=== PATIENT | male | born 1930 | race Caucasian/White ===

== ENCOUNTER 2019-10-26 18:28 | Emergency (ER) | payer MEDICAID ==
[2019-10-26] MEDS ORDERED: Aspirin 81 MG Tab.Chew PO ONE (18:57)
[2019-10-26] MEDS ORDERED: Alum Hydroxide/Mag Hydroxide 15 ML, Lidocaine 2% 15 ML PO ONE ×2 (19:02)
--- NOTE | 2019-10-26 20:21 | EDM.PDOC ---
ED HPI GENERAL MEDICAL PROBLEM - General Chief Complaint: Chest Pain Stated Complaint: CHEST PAIN Time Seen by Provider: 10/26/19 18:35 Source of Information: Reports: Patient History Limitations: Reports: No Limitations - History of Present Illness INITIAL COMMENTS - FREE TEXT/NARRATIVE: Patient presented to the Ed because of chest pain whish started at 10 340 am, sharp,3/10 over the epigastric area. there is no associated,N/V but c/o epigastric pain as well. chest Pain Score (Numeric/FACES): 5 - Related Data Allergies Allergy/AdvReac Type Severity Reaction Status Date / Time diphenhydramine Allergy Cannot Verified 10/26/19 19:38 [From [facility]] Remember nitroglycerin Allergy Cannot Verified 10/26/19 19:33 Remember phenyltoloxamine Allergy Cannot Verified 10/26/19 19:38 [From [facility]] Remember Home Meds: Home Meds Acetaminophen [Tylenol Extra Strength] 1,000 mg PO TID 10/26/19 [History] Aspirin [Aspirin EC] 325 mg PO DAILY 10/26/19 [History] Furosemide 80 mg PO DAILY 10/26/19 [History] Levothyroxine Sodium [Unithroid] 50 mcg PO DAILY 10/26/19 [History] Melatonin 5 mg PO BEDTIME 10/26/19 [History] Omeprazole 20 mg PO DAILY #30 tablet.dr 10/26/19 [Rx] Potassium Chloride [Klor-Con M20] 20 meq PO BID 10/26/19 [History] QUEtiapine [SEROquel] 25 mg PO BID 10/26/19 [History] allopurinoL [Zyloprim] 100 mg PO DAILY 10/26/19 [History] carvediloL [Carvedilol] 25 mg PO BID 10/26/19 [History] Past Medical History Cardiovascular History: Reports: Automatic Implantable Cardioverter Defibrillators, Cardiomyopathy, Heart Failure, High Cholesterol, Hypertension Respiratory History: Reports: SOB Genitourinary History: Reports: Prostate Disorder, UTI, Recurrent Neurological History: Reports: Alzheimers Disease Psychiatric History: Reports: Anxiety Oncologic (Cancer) History: Reports: Prostate Social & Family History - Family History Family Medical History: Unobtainable - Tobacco Use Smoking Status *Q: Current Status Unknown - Caffeine Use Caffeine Use Comment: unknown ED ROS GENERAL - Review of Systems Review Of Systems: See Below Constitutional: Reports: No Symptoms HEENT: Reports: No Symptoms Respiratory: Reports: No Symptoms Cardiovascular: Reports: Chest Pain Endocrine: Reports: No Symptoms GI/Abdominal: Reports: No Symptoms, Abdominal Pain Musculoskeletal: Reports: No Symptoms Skin: Reports: No Symptoms Neurological: Reports: No Symptoms Psychiatric: Reports: No Symptoms ED EXAM, GENERAL - Physical Exam Exam: See Below Exam Limited By: No Limitations General Appearance: Alert, WD/WN, No Apparent Distress Eye Exam: Bilateral Eye: PERRL Ears: Normal External Exam, Normal Canal, Normal TMs Nose: Normal Inspection, Normal Mucosa, No Blood Throat/Mouth: Normal Inspection, Normal Lips, Normal Teeth Head: Atraumatic, Normocephalic Neck: Normal Inspection, Supple, Non-Tender, Full Range of Motion Respiratory/Chest: No Respiratory Distress, Lungs Clear, Normal Breath Sounds, No Accessory Muscle Use, Chest Non-Tender Cardiovascular: Normal Peripheral Pulses, Regular Rate, Rhythm, No Edema, No Gallop, No JVD, No Murmur, No Rub GI/Abdominal: Normal Bowel Sounds, Soft, Non-Tender, No Organomegaly, No Distention, Other (epigastric tenderness) (Male) Exam: No Hernia Back Exam: Normal Inspection Course - Vital Signs Text/Narrative:: labs and ekg reviewed with patient and verbalized full understanding ASA 324 mg po x1 GI cocktail-resolved his pain Last Recorded V/S: Last Vital Signs Temp 36.5 C 10/26/19 18:28 Pulse 80 10/26/19 18:28 Resp 14 10/26/19 18:28 BP 106/67 10/26/19 18:28 Pulse Ox 97 10/26/19 18:28 - Orders/Labs/Meds Labs: Laboratory Tests 10/26/19 10/26/19 10/26/19 Range/Units 18:47 18:47 18:47 WBC 4.5 (4.5-12.0) X10-3/uL RBC 3.71 L (4.30-5.75) x10(6)uL Hgb 11.1 L (13.5-17.8) g/dL Hct 32.9 (30.0-51.3) % MCV 88.5 (80-96) fL MCH 29.9 (27.7-33.6) pg MCHC 33.8 (32.2-35.4) g/dL RDW 14.4 (11.5-15.5) % Plt Count 355 (125-369) X10(3)uL MPV 7.7 (7.4-10.4) fL Neut % (Auto) 53.3 (46-82) % Lymph % (Auto) 27.6 (13-37) % [place] % (Auto) 13.1 H (4-12) % Eos % (Auto) 5 (1.0-5.0) % Baso % (Auto) 1 (0-2) % Neut # (Auto) 2.5 (1.6-8.3) # Lymph # (Auto) 1.2 (0.6-5.0) # [place] # (Auto) 0.6 (0.0-1.3) # Eos # (Auto) 0.2 (0.0-0.8) # Baso # (Auto) 0.0 (0.0-0.2) # Sodium 139 (135-145) mmol/L Potassium 3.9 (3.5-5.3) mmol/L Chloride 102 (100-110) mmol/L Carbon Dioxide 26 (21-32) mmol/L BUN 21 H (7-18) mg/dL Creatinine 1.8 H (0.70-1.30) mg/dL Est Cr Clr Drug Dosing TNP Estimated GFR (MDRD) 36 L (>60) BUN/Creatinine Ratio 11.7 (9-20) Glucose 99 (80-116) mg/dL Calcium 9.1 (8.6-10.2) mg/dL Total Bilirubin 0.6 (0.1-1.3) mg/dL AST 26 H (5-25) IU/L ALT 24 (12-36) U/L Alkaline Phosphatase 85 (56-112) IU/L Troponin I < 0.017 L (<0.017-0.056) ng/mL Total Protein 6.9 (6.0-8.0) g/dL Albumin 3.9 (3.2-4.6) g/dL Globulin 3.0 g/dL Albumin/Globulin Ratio 1.3 Meds: Medications Discontinued Medications Generic Name Dose Route Start Last Admin Trade Name Freq PRN Reason Stop Dose Admin Aspirin 324 mg 12/26/19 18:57 Aspirin PO 10/26/19 18:58 ONETIME ONE Al Hydroxide/Mg Hydroxide 15 0 ml 10/26/19 19:02 10/26/19 19:25 ml/ Lidocaine HCl 15 ml PO 10/26/19 19:03 30 ml ONETIME ONE Administration Departure - Departure Time of Disposition: 20:15 Disposition: Home, Self-Care 01 Condition: Good Clinical Impression: Chest pain, atypical, Gastroesophageal reflux disease Prescriptions: Omeprazole 20 mg PO DAILY #30 tablet.dr Instructions: Food Choices for Gastroesophageal Reflux Disease, Adult, Nonspecific Chest Pain, [id number] Referrals: PCP,Unknown [Primary Care Provider] - Forms: ED Department Discharge Additional Instructions: please tread discharge instructions on atypical chest pain and GERD prilosec 20 mg once daily follow up as needed Sepsis Event Note - Evaluation Sepsis Screening Result: No Definite Risk - Focused Exam Date Exam was Performed: 10/27/19 Time Exam was Performed: 09:05
== END 2019-10-26 21:10 | disposition home or self-care (01) ==
LOC: FB.ED 18:28
DX: R07.89 Other chest pain (principal); K21.9 Gastro-esophageal reflux disease without esophagitis; I11.0 Hypertensive heart disease with heart failure; I50.9 Heart failure, unspecified; F41.9 Anxiety disorder, unspecified; Z88.8 Allergy status to other drugs, medicaments and biological substances; Z79.82 Long term (current) use of aspirin; Z79.899 Other long term (current) drug therapy
CPT/HCPCS: 36415; 80053; 84484; 85025; 99284; A9270